=== PATIENT | female | born 1985 | race Caucasian/White ===

== ENCOUNTER 2020-09-10 05:52 | Inpatient (IN) ==
[2020-09-10] MEDS ORDERED: Famotidine 20 MG/2 ML VIAL IVP ONE (05:56)
[2020-09-10] MEDS ORDERED: Ringers Solution, Lactated 1,000 ML IVC ONE (05:56)
[2020-09-10] MEDS ORDERED: Metoclopramide 10 MG/2 ML VIAL IVP ONE (05:56)
[2020-09-10 06:32] LABS: Basophils # 0.1 K/mcL (0.0-0.2); Basophils % 0.5 %; Eosinophils # 0.4 K/mcL (0.0-0.6); Eosinophils % 2.1 %; Hematocrit 38.6 % (35.3-44.9); Hemoglobin 12.7 g/dL (11.5-15.4); Immature Granulocytes % 1.1 % (0-4); Lymphocytes # 2.3 K/mcL (0.6-4.6); Mean Corpuscular HGB Conc 32.9 g/dL (31.6-35.5); Mean Corpuscular Hemoglobin 29.4 pg (28.0-33.3); Mean Corpuscular Volume 89.4 fL (83.0-100.0); Mean Platelet Volume 11.4 fL (9.4-12.4); Monocytes % 5.7 %; Neutrophils # 13.6 K/mcL (1.6-8.9); Platelet Count 215 K/mcL (140-400); Red Blood Count 4.32 M/mcL (3.82-4.97); Red Cell Distribution Width 13.2 % (11.5-14.5); Segmented Neutrophils % 77.6 %; White Blood Count 17.5 K/mcL (4.3-11.1)
[2020-09-10] MEDS ORDERED: CeFAZolin 2,000 MG/50 ML BAG IVPB ONE (07:09)
[2020-09-10] MEDS ORDERED: Ringers Solution, Lactated 2,000 ML ONE (07:15)
[2020-09-10] MEDS ORDERED: Oxytocin 20 units/ LR 1000 mL 20 UNIT/1,000 ML BAG IVC ONE (07:16)
[2020-09-10] MEDS ORDERED: EPHEDrine 50 MG/ML VIAL ONE (07:24)
[2020-09-10] MEDS ORDERED: Acetaminophen IV 1,000 MG/100 ML BAG IVPB ONE (07:26)
[2020-09-10] MEDS ORDERED: Ondansetron 4 MG/2 ML VIAL ONE (08:00)
[2020-09-10 08:42] LABS: Amphetamine Screen,Urine Negative ng/mL (Cutoff=1000)
[2020-09-10 08:43] LABS: Benzodiazepines Screen,Urine Negative ng/mL (Cutoff=200); Cannabinoid Screen,Urine Negative ng/mL (Cutoff = 50); Cocaine Screen,Urine Negative ng/mL (Cutoff= 300); Opiate Screen,Urine Negative ng/mL (Cutoff=300); Phencyclidine Screen,Urine Negative ng/mL (Cutoff=25)
[2020-09-10] MEDS ORDERED: *HR* HYDROmorphone PF 0.5 MG/0.5 ML SYRINGE IVP PRN (09:19)
[2020-09-10] MEDS ORDERED: Ondansetron 4 MG/2 ML VIAL IVP PRN ×2 (09:19→10:26)
[2020-09-10] MEDS ORDERED: *HR* OxyCODONE Immed Rel 5 MG TABLET PO PRN (09:19)
[2020-09-10 10:05] LABS: Barbiturate Screen,Urine Negative ng/mL (Cutoff=200)
[2020-09-10] MEDS ORDERED: Oxytocin 20 units/ LR 1000 mL 20 UNIT/1,000 ML BAG IVC SCH ×2 (10:26)
[2020-09-10] MEDS ORDERED: Ringers Solution, Lactated 1,000 ML IVC SCH (10:26)
[2020-09-10] MEDS ORDERED: Metoclopramide 10 MG/2 ML VIAL IVP PRN (10:26)
[2020-09-10] MEDS ORDERED: Sennosides 8.6 MG TABLET PO PRN (10:26)
[2020-09-10] MEDS ORDERED: NON-FORMULARY MEDICATION 1 EACH EACH (Pnv No.95/Ferrous Fum/Folic Ac [Prenatal Caplet] 1 T PO SCH (10:26)
[2020-09-10] MEDS ORDERED: *HR* OxyCODONE/APAP 5/325 TABLET PO PRN (10:26)
[2020-09-10] MEDS ORDERED: Simethicone 80 MG TAB.CHEW PO PRN (10:26)
[2020-09-10] MEDS ORDERED: *HR* Morphine Sulfate/PF 10 MG/10 ML AMPUL ONE (15:13)
[2020-09-10] MEDS ORDERED: *HR* FentaNYL (PF) 100 MCG/2 ML VIAL ONE (15:13)
[2020-09-10] MEDS: metroNIDAZOLE 500 MG TABLET PO SCH ×2 (16:12→21:45)
[2020-09-10] MEDS: cephALEXin 500 MG CAPSULE PO SCH ×2 (16:12→21:45)
[2020-09-10] MEDS: Ibuprofen 600 MG TABLET PO PRN (21:46)
[2020-09-11 04:35] LABS: Basophils # 0.1 K/mcL (0.0-0.2); Basophils % 0.5 %; Eosinophils # 0.3 K/mcL (0.0-0.6); Hematocrit 31.7 % (35.3-44.9); Immature Granulocytes % 0.6 % (0-4); Lymphocytes # 1.7 K/mcL (0.6-4.6); Lymphocytes % 12.6 %; Mean Corpuscular HGB Conc 33.1 g/dL (31.6-35.5); Mean Corpuscular Hemoglobin 30.2 pg (28.0-33.3); Mean Corpuscular Volume 91.1 fL (83.0-100.0); Mean Platelet Volume 11.4 fL (9.4-12.4); Monocytes # 0.9 K/mcL (0.0-1.3); Monocytes % 6.7 %; Neutrophils # 10.2 K/mcL (1.6-8.9); Platelet Count 165 K/mcL (140-400); Red Blood Count 3.48 M/mcL (3.82-4.97); Red Cell Distribution Width 13.2 % (11.5-14.5); Segmented Neutrophils % 77.6 %; White Blood Count 13.2 K/mcL (4.3-11.1)
[2020-09-11 04:38] LABS: Hemoglobin 10.5 g/dL (11.5-15.4)
[2020-09-11] MEDS: Prenatal Vit/FA 1 EACH TABLET PO SCH (09:26)
[2020-09-11] MEDS: metroNIDAZOLE 500 MG TABLET PO SCH ×3 (09:26→21:46)
[2020-09-11] MEDS: cephALEXin 500 MG CAPSULE PO SCH ×3 (09:26→21:46)
[2020-09-11] MEDS: Ibuprofen 600 MG TABLET PO PRN ×2 (09:26→17:59)
[2020-09-12] MEDS: Ibuprofen 600 MG TABLET PO PRN (03:08)
[2020-09-12 07:53] VITALS: BP 112/72
[2020-09-12] MEDS: Prenatal Vit/FA 1 EACH TABLET PO SCH (08:12)
== END 2020-09-12 11:20 | disposition home or self-care (01) | DRG 539 ==
LOC: 1NENULAB 05:52 → 1NENUOBS 10:23
PROVIDERS: ADMIT Obstetrics & Gynecology; ATTEND Obstetrics & Gynecology